=== PATIENT | male | born 1950 | race Asian ===

== ENCOUNTER 2021-10-04 18:17 | Inpatient (IN) | payer MEDICARE, OTHER ==
[2021-10-04 20:23] LABS: #Basophils 0.1 10x3/uL (0.0-0.2); #Eosinphils 0.3 10x3/uL (0.0-0.5); #Monocytes 1.2 10x3/uL (0.0-1.1); #Neutrophils 15.1 10x3/uL (1.5-8.4); %Basophils 0.4 % (0.0-2.0); %Eosinophils 1.9 % (0.0-6.0); %Lymphocytes 8.6 % (18.0-47.0); %Monocytes 6.3 % (0.0-10.0); %Neutrophils 82.4 % (40.0-75.0); Hemoglobin 13.5 g/dL (13.5-17.5); Mean Corpuscular HGB CONC 32.9 g/dL (32.0-36.0); Mean Corpuscular Hemoglobin 32.1 pg (27.0-33.0); Mean Corpuscular Volume 97.6 fl (81.2-95.1); Mean Platelet Volume 10.9 fl (7.4-10.4); Platelet Count 370 10x3/uL (150-450); RBC Distribution Width 12.6 % (11.5-14.5); White Blood Cell (WBC) Count 18.3 10x3/uL (3.5-10.5)
[2021-10-04] MEDS ORDERED: Morphine 4 MG/ML VIAL ONE (20:23)
[2021-10-04] MEDS ORDERED: Ondansetron PF 4 MG/2 ML Vial ONE (20:23)
[2021-10-04 20:44] LABS: ALT (SGPT) 15 U/L (8-55); AST (SGOT) 17 U/L (5-34); Albumin 4.3 g/dL (3.4-4.8); Alkaline Phosphatase 125 U/L (40-110); Anion Gap 15 mmol/L (10-20); BUN (Urea Nitrogen) 11 mg/dL (8.4-25.7); Bilirubin, Total 0.4 mg/dL (0.2-1.2); Calc. Creatinine Clearance 0 mL/min (70-130); Carbon Dioxide 25 mmol/L (23-31); Chloride 100 mmol/L (98-107); Globulin 2.8 g/dL (2.4-3.5); Glucose 179 mg/dL (83-110); Lipase 28 U/L (8-78); Potassium 4.8 mmol/L (3.5-5.1); Protein, Total 7.1 g/dL (5.8-8.1); Sodium 135 mmol/L (136-145)
[2021-10-04 22:15] LABS: Bilirubin Neg (Negative); Blood, Urine Negative (Negative); Clarity Clear (Clear); Glucose, Urine (Dipstick) Normal (Negative); Ketone, Urine Negative (Negative); Leukocyte Negative (Negative); Nitrite Negative (Negative); Protein, Urine (Dipstick) 30 mg/dl (Neg-Trace); Urobilinogen Normal mg/dL (Less than 2); pH, Urine 6.5 (5.0-9.0)
[2021-10-04 22:34] LABS: Bacteria/HPF Rare-Few HPF (None Seen); Mucous/LPF Rare LPF (<2+); RBC/HPF None Seen HPF (0-3); Squamous Epithelial 0-3 HPF (0-3); WBC/HPF 0-3 HPF (0-3)
[2021-10-04] MEDS ORDERED: Midazolam HCl 2 mg/2 ml Vial ONE (22:54)
[2021-10-04] MEDS ORDERED: Enoxaparin Sodium 80 MG/0.8 ML SYRINGE ONE (23:52)
[2021-10-05] MEDS ORDERED: Morphine 4 MG/ML VIAL SLOW IVP PRN (00:23)
[2021-10-05] MEDS ORDERED: Ondansetron PF 4 MG/2 ML Vial IVP PRN (00:24)
[2021-10-05] MEDS ORDERED: Lactated Ringer's 1,000 ML IV SCH (01:00)
[2021-10-05 01:09] VITALS: BMI 24.1
[2021-10-05 02:19] LABS: SARS-CoV-2 NAA Rapid Test Not Detected (NotDetected)
[2021-10-05 07:52] LABS: #Basophils 0.1 10x3/uL (0.0-0.2); #Eosinphils 1.4 10x3/uL (0.0-0.5); #Monocytes 1.3 10x3/uL (0.0-1.1); #Neutrophils 10.1 10x3/uL (1.5-8.4); %Basophils 0.6 % (0.0-2.0); %Eosinophils 9.6 % (0.0-6.0); %Lymphocytes 12.7 % (18.0-47.0); %Neutrophils 67.8 % (40.0-75.0); Hemoglobin 11.3 g/dL (13.5-17.5); Mean Corpuscular HGB CONC 33.1 g/dL (32.0-36.0); Mean Corpuscular Hemoglobin 32.2 pg (27.0-33.0); Mean Corpuscular Volume 97.2 fl (81.2-95.1); Mean Platelet Volume 11.3 fl (7.4-10.4); Platelet Count 334 10x3/uL (150-450); RBC Distribution Width 12.7 % (11.5-14.5); Red Blood Cell (RBC) Count 3.51 10x6/uL (4.32-5.72); White Blood Cell (WBC) Count 14.9 10x3/uL (3.5-10.5)
[2021-10-05 08:05] LABS: Anion Gap 16 mmol/L (10-20); BUN (Urea Nitrogen) 12 mg/dL (8.4-25.7); Calc. Creatinine Clearance 57 mL/min (70-130); Calcium 8.7 mg/dL (7.8-10.44); Carbon Dioxide 21 mmol/L (23-31); Chloride 104 mmol/L (98-107); Glucose 129 mg/dL (83-110); Sodium 137 mmol/L (136-145)
[2021-10-05] MEDS: Famotidine/PF 20 mg/2ml Vial SLOW IVP SCH ×2 (09:12→21:49)
[2021-10-05] MEDS ORDERED: hydrALAZINE 20 MG/ML VIAL SLOW IVP PRN (11:58)
[2021-10-05] MEDS ORDERED: Dextrose 5% in Water 1,000 ML IV PRN (12:37)
[2021-10-05] MEDS ORDERED: Dextrose 50% Abboject 50 ML SYRINGE SLOW IVP PRN (12:37)
[2021-10-05] MEDS ORDERED: Insulin Regular 300 UNITS/3 ML VIAL SC PRN (12:37)
[2021-10-05] MEDS: Metoprolol Tartrate 25 MG TAB PO SCH (21:49)
[2021-10-05] MEDS ORDERED: Morphine 2 MG/ML VIAL SLOW IVP PRN (22:03)
[2021-10-05] MEDS: Cepastat Lozenges 1 LOZ PO PRN (22:09)
[2021-10-06 04:34] LABS: #Basophils 0.1 10x3/uL (0.0-0.2); #Eosinphils 1.7 10x3/uL (0.0-0.5); #Monocytes 1.2 10x3/uL (0.0-1.1); #Neutrophils 9.6 10x3/uL (1.5-8.4); %Basophils 0.9 % (0.0-2.0); %Eosinophils 11.9 % (0.0-6.0); %Monocytes 8.7 % (0.0-10.0); %Neutrophils 68.1 % (40.0-75.0); Hemoglobin 12.1 g/dL (13.5-17.5); Mean Corpuscular HGB CONC 33.5 g/dL (32.0-36.0); Mean Corpuscular Hemoglobin 31.8 pg (27.0-33.0); Mean Platelet Volume 11.2 fl (7.4-10.4); Platelet Count 336 10x3/uL (150-450); RBC Distribution Width 12.6 % (11.5-14.5); White Blood Cell (WBC) Count 14.1 10x3/uL (3.5-10.5)
[2021-10-06 04:47] LABS: Anion Gap 18 mmol/L (10-20); BUN (Urea Nitrogen) 12 mg/dL (8.4-25.7); Calc. Creatinine Clearance 55 mL/min (70-130); Carbon Dioxide 21 mmol/L (23-31); Chloride 103 mmol/L (98-107); Glucose 132 mg/dL (83-110); Sodium 138 mmol/L (136-145)
[2021-10-06] MEDS: Cepastat Lozenges 1 LOZ PO PRN ×3 (05:13→15:56)
[2021-10-06] MEDS: Metoprolol Tartrate 25 MG TAB PO SCH ×2 (08:59→21:44)
[2021-10-06] MEDS: Famotidine/PF 20 mg/2ml Vial SLOW IVP SCH ×2 (08:59→21:40)
[2021-10-06] MEDS ORDERED: Dextrose 5% in Water 1,000 ML IV SCH (16:00)
[2021-10-06] MEDS ORDERED: Dextrose 5% in Water 1,000 ML ONE (17:47)
[2021-10-07] MEDS: Metoprolol Tartrate 25 MG TAB PO SCH (08:51)
[2021-10-07] MEDS: Famotidine/PF 20 mg/2ml Vial SLOW IVP SCH (08:51)
[2021-10-07 12:19] VITALS: BP 166/79; TEMP 98.5
== END 2021-10-07 14:13 | disposition home or self-care (01) | DRG 389 ==
LOC: CSHERS 18:17 → CSHTELE 10-05 00:18
PROVIDERS: ADMIT Specialist; ATTEND Specialist
DX: K56.609 Unspecified intestinal obstruction, unspecified as to partial versus complete obstruction (principal); I82.512 Chronic embolism and thrombosis of left femoral vein; E11.9 Type 2 diabetes mellitus without complications; I10 Essential (primary) hypertension; Z20.822 Contact with and (suspected) exposure to COVID-19; E78.5 Hyperlipidemia, unspecified; I25.10 Atherosclerotic heart disease of native coronary artery without angina pectoris; D50.9 Iron deficiency anemia, unspecified; Z95.5 Presence of coronary angioplasty implant and graft; Z90.49 Acquired absence of other specified parts of digestive tract; Z79.84 Long term (current) use of oral hypoglycemic drugs; Z79.899 Other long term (current) drug therapy; Z85.46 Personal history of malignant neoplasm of prostate; Z82.49 Family history of ischemic heart disease and other diseases of the circulatory system; I25.2 Old myocardial infarction; Z79.82 Long term (current) use of aspirin
CPT/HCPCS: 36415; 36416; 71045; 74177; 74250; 80048; 80053; 81003; 81015; 83690; 85025; 85379; 93005; 96372; 96374; 96375; J1650; J1815; J2250; J2270; J2405; J7070; J7120; S0028; U0002

== ENCOUNTER 2025-03-29 08:22 | Outpatient (CLI) | payer MEDICARE, OTHER | END 2025-03-29 08:23 | disposition home or self-care (01) | LOC: CSHCT 08:22 | PROVIDERS: ATTEND Internal Medicine Cardiovascular Disease | DX: I25.10 Atherosclerotic heart disease of native coronary artery without angina pectoris (principal); I65.21 Occlusion and stenosis of right carotid artery; R91.8 Other nonspecific abnormal finding of lung field | CPT/HCPCS: 70498 ==